=== PATIENT | male | born 2005 | race Caucasian/White ===

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

== ENCOUNTER 2024-01-26 08:02 | Emergency (ER) | payer BC ==
[~2024-01-26] VITALS: Ht 187.9 cm; Wt 98.0 kg
[2024-01-26 08:34] LABS: BASO % 0.2 % (0.0-1.0); EOS # 0.1 10*3/uL (0.0-0.4); EOS % 1.5 % (1.0-4.0); HEMATOCRIT 43.6 % (42.0-52.0); LYMPH % 11.8 % (27.0-41.0); MEAN CELL VOLUME 89.3 fl (80.0-94.0); MEAN CORPUSCULAR HGB 29.7 pg (27.0-31.0); MEAN CORPUSCULAR HGB CONC 33.3 g/dl (33.0-37.0); MEAN PLATELET VOLUME 10.2 fl (9.6-12.3); MONO # 0.6 10*3/uL (0.1-1.0); MONO % 7.3 % (3.0-9.0); NEUT # 6.6 10*3/uL (2.3-7.9); PLATELET COUNT AUTOMATED 240 10*3/uL (130-400); RED BLOOD COUNT 4.88 10*6/uL (4.50-5.90); RED CELL DISTRI WIDTH 12.7 % (0-14.5); WHITE BLOOD COUNT 8.4 10*3/uL (4.8-10.8)
[2024-01-26] MEDS ORDERED: Ondansetron Hydrochloride 4 MG/2 ML VIAL IV ONE (08:40)
[2024-01-26] MEDS ORDERED: Lactated Ringer's Solution 1,000 ML IV SCH (08:40)
[2024-01-26 08:55] LABS: ALKALINE PHOSPHATASE 65 U/L (46-116); BUN 7 mg/dl (9-23); CHLORIDE 105 mmol/L (98-107); LIPASE 25 U/L (12-53); POTASSIUM 3.7 mmol/L (3.4-5.1); SGPT/ALT 61 U/L (5-49); TOTAL PROTEIN 7.3 gm/dL (6.0-8.0)
[2024-01-26] MEDS ORDERED: Metoclopramide Hydrochloride 10 MG/2 ML AMP IV ONE (09:35)
[2024-01-26] MEDS ORDERED: Ketorolac Tromethamine 15 MG/ML VIAL IV ONE (09:35)
[2024-01-26] MEDS ORDERED: diphenhydrAMINE hydrochloride 50 MG/ML VIAL IV ONE (09:35)
[2024-01-26 10:06] LABS: BILIRUBIN Negative (Negative); BLOOD Negative (Negative); CLARITY Clear (Clear); COLOR Yellow (Yellow); GLUCOSE Negative (Negative); KETONE Negative (Negative); LEUKO ESTERASE Negative (Negative); NITRITE Negative (Negative); PH 5.5 (4.5-8.0); SPECIFIC GRAVITY 1.015 (1.001-1.030)
[2024-01-26 10:46] LABS: EPITHELIAL CELLS 0-2
[2024-01-26] MEDS ORDERED: IOHEXOL 300 MG/ML 100 ML VIAL IV ONE (11:45)
[2024-01-26] MEDS ORDERED: IOHEXOL 300 MG/ML 100 ML VIAL ONE (12:00)
[2024-01-26] MEDS ORDERED: Ondansetron4 MG PO (13:45)
[2024-01-26] MEDS ORDERED: TYLENOL EXTRA500 MG PO (13:45)
[2024-01-26] MEDS ORDERED: Motrin,Rufen400 MG PO (13:45)
== END 2024-01-26 13:54 | disposition home or self-care (01) ==
LOC: ED 08:02
PROVIDERS: Emergency Medicine
DX: K51.90 Ulcerative colitis, unspecified, without complications (principal); Z20.822 Contact with and (suspected) exposure to COVID-19; R19.7 Diarrhea, unspecified; K76.0 Fatty (change of) liver, not elsewhere classified; R74.01 Elevation of levels of liver transaminase levels; B34.9 Viral infection, unspecified; Z98.890 Other specified postprocedural states

== ENCOUNTER 2024-10-30 23:48 | Emergency (ER) | payer BC ==
[~2024-10-30] VITALS: Ht 195.5 cm; Wt 99.8 kg
[~2024-10-30 23:48] MED LIST changes: +Motrin,Rufen400 MG PO; +Ondansetron4 MG PO; +TYLENOL EXTRA500 MG PO
[2024-10-31] MEDS ORDERED: NAPROXEN 250 MG TAB PO ONE (00:05)
[2024-10-31] MEDS ORDERED: NAPROSYN500 MG PO (01:08)
== END 2024-10-31 01:21 | disposition home or self-care (01) ==
LOC: ED 23:48
DX: S93.601A Unspecified sprain of right foot, initial encounter (principal); Z79.899 Other long term (current) drug therapy; X50.1XXA Overexertion from prolonged static or awkward postures, initial encounter; Y93.89 Activity, other specified; Y92.89 Other specified places as the place of occurrence of the external cause; Y99.8 Other external cause status